=== PATIENT | female | born 2000 | race Two or more races ===

== ENCOUNTER 2021-06-01 11:11 | Observation (INO) | payer MEDICAID, OTHER ==
[~2021-06-01] VITALS: Ht 160 cm; Wt 52.6 kg
[2021-06-01] MEDS ORDERED: PREN27TA7 OR (11:43)
[2021-06-01] MEDS ORDERED: TERBUTALINE SULFATE 1 MG/ML 1ML VIAL SC SCH (12:00)
== END 2021-06-01 13:03 | disposition home or self-care (01) ==
LOC: LDRP 11:11
PROVIDERS: ADMIT Obstetrics & Gynecology; ATTEND Obstetrics & Gynecology
DX: O62.9 Abnormality of forces of labor, unspecified (principal); O36.5930 Maternal care for other known or suspected poor fetal growth, third trimester, not applicable or unspecified; Z3A.31 31 weeks gestation of pregnancy
CPT/HCPCS: 59025; 81002; 96372; G0378; G0379; J3105

== ENCOUNTER 2025-03-31 15:41 | Emergency (ER) | payer MEDICAID ==
[~2025-03-31] VITALS: Ht 160 cm; Wt 47.2 kg
[~2025-03-31 15:41] MED LIST: PREN27TA7 OR
[2025-03-31 15:55] VITALS: BP 127/81; PULSE 84; RESP 13; TEMP 98.2; O2SAT 97
--- NOTE | 2025-03-31 16:06 | ED.PDOC ---
History of Present Illness HPI Comments 24-year-old female with no reported PMHx presents with a chief complaint of abscess to outer labia. Patient states that she was taking a shower and noticed that she had an abscess structure to her labia. Patient denies any manipulation of the abscess at all. Patient is currently doing Monistat 7 for a yeast infection currently and is on day 3. No other symptoms or modifying factors present at this time. Patient denies any discharge. Vital signs were stable. 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 Family History Family History: Reviewed,noncontributory to illness, No family hx of Cancer, No family hx of DM, No family hx of Heart cynthia, No family hx of HTN, No family hx ofKidney cynthia, No family hx of Liver cynthia, No family hx of Lung cynthia, No family hx of Stroke Social History Smoker: Non-Smoker Alcohol: Denies ETOH Use Drugs: Denies Drug Use Lives In: Home Constitutional: denies: chills, diaphoresis, fatigue, fever, malaise, sweats, weakness, others EENTM: denies: blurred vision, double vision, ear bleeding, ear discharge, ear drainage, ear pain, ear ringing, eye pain, eye redness, hearing loss, mouth pain, mouth swelling, nasal discharge, nose bleeding, nose congestion, nose pain, photophobia, tearing, throat pain, throat swelling, voice changes, others Respiratory: denies: cough, hemoptysis, orthopnea, SOB at rest, shortness of breath, SOB with excertion, stridor, wheezing, others Cardiovascular: denies: chest pain, dizzy spells, diaphoresis, Dyspnea on e xertion, edema, irregular heart beat, left arm pain, lightheadedness, palpitations, PND, syncope, others Gastrointestinal: denies: abdomen distended, abdominal pain, blood streaked bowels, constipated, diarrhea, dysphagia, difficulty swallowing, hematemesis, melena, nausea, poor appetite, poor fluid intake, rectal bleeding, rectal pain, vomiting, others Genitourinary: denies: abnormal vagina bleeding, burning, dyspareunia, dysuria, flank pain, frequency, hematuria, incontinence, pain, , vagina discharge, urgency, others Neurological: denies: dizziness, fainting, headache, left sided numbness, left sided weakness, numbness, paresthesia, pre-existing deficit, right sided numbness, right sided weakness, seizure, speech problems, tingling, tremors, weakness, others Musculoskeletal: denies: back pain, gout, joint pain, joint swelling, muscle pain, muscle stiffness, neck pain, others Integumetry: reports: others (ABSCESS TO LABIA); denies: bruises, change in color, change in hair/nails, dryness, laceration, lesions, lumps, rash, wounds Allergic/Immunocompromised: denies: Difficulty Healing, Frequent Infections, Hives, Itching, others Hematologic/Lymphatic: denies: anemia, blood clots, easy bleeding, easy bruisin g, swollen glands, others Endocrine: denies: excessive hunger, excessive sweating, excessive thirst, excessive urination, flushing, intolerance to cold, intolerance to heat, unexplained weight gain, unexplained weight loss, others Psychiatric: denies: anxiety, bipolar disorder, depression, hopeless, panic disorder, schizophrenia, sleepless, suicidal, others All Other Systems: Reviewed and Negative Physical Exam General Appearance: Mild Distress (Moderate distress due to anxiety and discomfort related to the vaginal abscess.), Normal HEENT: Normal ENT Inspection, Pharynx Normal, TMs Normal Neck: Full Range of Motion, Non-Tender, Normal, Normal Inspection Respiratory: Chest Non-Tender, Lungs Clear, No Accessory Muscle Use, No Respiratory Distress, Normal Breath Sounds Cardiovascular: No Edema, No JVD, No Murmur, No Gallop, Normal Peripheral Pulses, Regular Rate/Rhythm Breast Exam: Deferred Gastrointestinal: No Organomegaly, Non Tender, No Pulsatile Mass, Normal Bowel Sounds, Soft Genitalia: Other (Patient displays some mild swelling to the right internal labia at the introitus. No definitive Bartholin cyst formation. No definitive confluence noted.) Pelvic: Deferred Rectal: Deferred Extremities: No calf tenderness, Normal capillary refill, Normal inspection, Normal range of motion, Non-tender, No pedal edema Musculoskeletal : Apperance: Normal Neurologic: Alert, No Motor Deficits, Normal Affect, Normal Mood, No Sensory Deficits Cerebellar Function: Normal Reflexes: Normal Skin: Dry, Normal Color, Warm Lymphatic: No Adenopathy Was a procedure done? Was a procedure done?: No Differential Dx Considerations may include: Bartholin cyst. Abscess. Vaginal irritation X-Ray, Labs, Meds, VS Vital Signs Date Time Temp Pulse Resp B/P (MAP) Pulse Ox O2 Delivery O2 Flow Rate FiO2 03/31/25 15:55 98.2 84 13 127/81 (96) 97 98.2 X-Ray, Labs, Meds, VS Comment Advised patient that she has not formed a Bartholin cyst as of yet. I will send the patient home with some oral antibiotics to hopefully stave off any formation. Advised patient that if the area coalesces and becomes definitively demarcated, please return to ED for evaluation and assistance. Time of 1ST Reevaluation: 16:27 Reevaluation 1ST: Improved Consultation: PCP Patient Education/Counseling: Diagnosis, Treatment, Need For Follow Up Family Education/Counseling: Diagnosis, Treatment, No Family Present SEPSIS Sepsis Screen Recent Procedure: No On Antibiotic Therapy: No Respiratory Rate >20: No Heart Rate >90: No Temp<36 C (96.8 F) or >38.3 C: No SBP <90 or MAP <65 mmHG: No New Acute Mental Status Change: No Is the patient on CPAP, BIPAP,: No Vital Signs Date Time Temp Pulse Resp B/P (MAP) Pulse Ox O2 Delivery O2 Flow Rate FiO2 03/31/25 15:55 98.2 84 13 127/81 (96) 97 98.2 Departure 1 Departure Time of Disposition: 16:27 Impression: Primary Impression: Skin infection Disposition: HOME / SELF CARE / HOMELESS Condition: Stable Additional Instructions: Advised patient utilize antibiotics as directed until completion. If the area does not improve, please return to ED for re-evaluation and possible int ervention. e-Prescriptions Acetaminophen (Acetaminophen) 500 Mg Tab 500 MG PO Q4HP PRN, #30 TAB Prov: RAYA GODOY PAC 03/31/25 Ibuprofen (Ibuprofen) 600 Mg Tab 1 TAB PO Q6HP PRN, #30 TAB Prov: RAYA GODOY PAC 03/31/25 Sulfamethoxazole W/Trimethopri (Bactrim Ds Tablet) 1 Tab Tb 1 TAB PO BID for 7 Days, #14 TAB Prov: RAYA GODOY PAC 03/31/25 Discharged With: Self, Friend Critical Care Note Critical Care Time?: No Stability Stability form required: No Heart Score Heart Score: Heart Score Response (Comments) Value History N/A 0 EKG N/A 0 Age N/A 0 Risk Factors N/A 0 Troponin N/A 0 Total 0 I personally scribed for RAYA GODOY PAC ([email or web address]) on 03/31/25 at 16:06. Electronically submitted by Marquis Daley ([email or web address]). RAYA GODOY PAC Mar 31, 2025 16:06
[2025-03-31] MEDS ORDERED: ACET500T58 PO (16:29)
[2025-03-31] MEDS ORDERED: IBUP-1454 PO (16:29)
[2025-03-31] MEDS ORDERED: BACDST PO (16:29)
== END 2025-03-31 17:15 | disposition home or self-care (01) ==
LOC: ER 15:41
DX: L08.89 Other specified local infections of the skin and subcutaneous tissue (principal); N94.89 Other specified conditions associated with female genital organs and menstrual cycle; Z79.899 Other long term (current) drug therapy